=== PATIENT | male | born 1955 | race Caucasian/White ===

== ENCOUNTER 2023-08-08 07:00 | Outpatient (NON) | payer MEDICARE, SELFPAY | END 2023-08-08 07:01 | disposition home or self-care (01) | PROVIDERS: PCP Family Medicine Adolescent Medicine; Visit Provider Internal Medicine Gastroenterology | DX: Z12.11 Encounter for screening for malignant neoplasm of colon (principal) | CPT/HCPCS: 88305 ==

== ENCOUNTER 2023-08-08 08:59 | Day surgery (SDC) | payer MEDICARE, SELFPAY ==
[2023-07-20 08:58] VITALS: BMI 24.6
[2023-07-20 10:54] VITALS: BMI 23.7
--- NOTE | 2023-08-05 14:00 | PM.HPGS ---
History of Present Illness History of Present Illness Consent: Risks, benefits, and alternatives have been discussed and questions answered. Patient agrees to proceed with procedure. Chief complaint: Z80.0 Family hisory of malignant neoplasm of Narrative: Michel Rivas is a 68 year old male referred for colon cancer screening. His father had colon cancer. Review of Systems Review of Systems: All systems reviewed & are unremarkable except as noted in HPI and below PMFSH Past Medical History Medical History Anxiety Hypertension Family History Family History Father Carcinoma of colon Social History Social History Smoking status: Never smoker Alcohol intake: current Drinks per week: 10 Alcohol use details: 2x week Substance use: never Substance use type: does not use Lack of Transportation: No Lack of Food: Never True Living arrangements: with family Occupation/Education: retired Spiritual care concerns: No Meds Home Medications and Allergies Home Medications Medication Instructions Recorded Confirmed Type clonazepam 0.5 mg tablet 0.5 mg PO BID #60 tabs 03/11/23 08/08/23 Rx lisinopril 40 mg tablet 40 mg PO DAILY #30 tabs 03/11/23 08/08/23 Rx trazodone 50 mg tablet 50 mg PO QHS #30 tabs 03/11/23 08/08/23 Rx zolpidem 5 mg tablet 5 mg PO QHS PRN insomnia #30 tabs 03/11/23 08/08/23 Rx Allergies Allergy/AdvReac Type Severity Reaction Status Date / Time No Known Allergies Allergy Verified 08/08/23 10:31 Exam Resp: Auscultation: clear to auscultation bilaterally Cardio: Rate: regular rate Rhythm: regular rhythm GI: GI Palp: Yes Soft to palpation and No Tenderness to palpation present (GI) Assessment and Plan Assessment and plan (1) Colon cancer screening: Code(s): Z12.11 - Encounter for screening for malignant neoplasm of colon Status: Acute Assessment and Plan: Colonoscopy with possible biopsy or polypectomy or cautery or injection of substances.
--- NOTE | 2023-08-08 09:25 | P.PNAN_ITS ---
Anes - Initial Pre Proc Eval Procedure: Operation Date: 08/08/23 11:30 Proposed Procedures p Diagnostic Colonoscopy - Jak Snyder MD Date/Time: 08/08/23 09:25 Surgeon: Jak Snyder MD Pre Op Diagnosis: Z80.0 Family hisory of malignant neoplasm of Patient Data Age: 68 Gender: M Height: 1.85 m Weight: 81.5 kg Allergies Allergy/AdvReac Type Severity Reaction Status Date / Time No Known Allergies Allergy Verified 08/08/23 10:31 Home Medications Medication Instructions Recorded Confirmed Type clonazepam 0.5 mg tablet 0.5 mg PO BID #60 tabs 03/11/23 08/08/23 Rx lisinopril 40 mg tablet 40 mg PO DAILY #30 tabs 03/11/23 08/08/23 Rx trazodone 50 mg tablet 50 mg PO QHS #30 tabs 03/11/23 08/08/23 Rx zolpidem 5 mg tablet 5 mg PO QHS PRN insomnia #30 tabs 03/11/23 08/08/23 Rx Patient hx anesthesia problems: none Family hx anesthesia problems: none Results Review: All pre-operative results and documents have been reviewed as part of the pre- operative evaluation. [facility] Past Medical History Medical History (Updated 08/08/23 @ 09:26 by Maximino Vitale DO) Anxiety Hypertension Family History Family History Father Carcinoma of colon Social History Social History Smoking status: Never smoker Alcohol intake: current Drinks per week: 10 Alcohol use details: 2x week Substance use: never Substance use type: does not use Lack of Transportation: No Lack of Food: Never True Living arrangements: with family Occupation/Education: retired Spiritual care concerns: No Anes - Eval Final PreProcedure Day of Procedure 08/08/23 09:25 Patient weight: normal Heart: regular rate and rhythm Lungs: clear to auscultation and normal air movement Airway: Mallampati scale class II Neurological: alert and oriented Last oral intake: >/= 8 hours ASA classification: II Emergent: no Anesthetic plan: proceed Anesthesia type and monitoring: general GIVS and standard monitoring Results Review: All pre-operative results and documents have been reviewed as part of the pre- operative evaluation. Informed Consent: The patient's anesthetic plan and its attendant risks and benefits were discussed with the patient/family/POA. Questions were solicited and answers provided to the satisfaction of the patient/family/POA.
[2023-08-08 10:33] VITALS: BP 137/78; PULSE 62; RESP 16; TEMP 36.8; O2SAT 99
[2023-08-08] MEDS: LACTATED RINGERS 1,000 ML 150 ML IV CONT (10:42)
[2023-08-08 12:22] VITALS: BP 110/71; PULSE 56; RESP 16; O2SAT 99
[2023-08-08 12:32] VITALS: BP 123/81; PULSE 61; RESP 17; O2SAT 100
[2023-08-08 12:42] VITALS: BP 124/80; PULSE 55; RESP 16; O2SAT 100
--- NOTE | 2023-08-08 13:48 | WPDANESPN ---
Anes - Prog Note Post-Op Date/Time: 08/08/23 13:48 Cardiovascular status: normal Respiratory status: normal Airway patency: baseline Mental status: baseline Post-Op hydration status: normal Vital Signs: Last Vital Signs Temp 36.8 C 08/08/23 10:33 Pulse 55 L 08/08/23 12:42 Resp 16 08/08/23 12:42 BP 124/80 08/08/23 12:42 Pulse Ox 100 08/08/23 12:42 O2 Del Method Room Air 08/08/23 12:42 Pain Score (VAS): 0 I/O: Intake & Output 08/07/23 08/08/23 08/08/23 23:59 07:59 15:59 Intake Total 300 Balance 300 Post-procedural complaints: none Patient Feedback: Patient satisfied with anesthetic care. Other Findings: Patient vital signs back to baseline. Patient denies nausea and vomiting. Patient's pain under control. Patient OK for discharge.
== END 2023-08-08 12:55 | disposition home or self-care (01) ==
PROVIDERS: PCP Family Medicine Adolescent Medicine; Visit Provider Internal Medicine Gastroenterology
PROC: 0DJD8ZZ Inspection of Lower Intestinal Tract, Via Natural or Artificial Opening Endoscopic (ICD-10-PCS; CPT 45378; principal; 2023-08-08 11:30)
DX: Z12.11 Encounter for screening for malignant neoplasm of colon (principal); D12.8 Benign neoplasm of rectum; K64.8 Other hemorrhoids
CPT/HCPCS: 45385